=== PATIENT | male | born 1960 | race Caucasian/White ===

== ENCOUNTER 2016-10-18 14:52 | Emergency (ER) | payer OTHER ==
[2016-10-18 15:04] VITALS: BP 141/93
[2016-10-18] MEDS ORDERED: Levalbuterol 0.63MG/3ML NEB INH ONE (15:04)
--- NOTE | 2016-10-18 15:06 | UC ---
Progress - Progress Note Progress Note: Provider saw Patient at initial triage, O2sat 94% and bilateral wheezing ascultated, Neb treatment ordered after medications reviewed. Denied CP.
[2016-10-18] MEDS ORDERED: Acetaminophen TAB* 325 MG PO ONE (15:44)
--- NOTE | 2016-10-18 16:22 | RAD ---
INDICATION: Cough, fever and hemoptysis COMPARISON: Most recent comparison chest x-ray is dated September 29, 2013 TECHNIQUE: PA and lateral views of the chest were obtained. FINDINGS: There is a left chest cardiac pacemaker with 2 leads overlying the heart. 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 The heart and mediastinum are normal in size and contour. The lungs are grossly clear. There is no evidence of large pleural effusion. Degenerative changes of the thoracic spine includes loss of intervertebral disc height and mild anterior marginal osteophyte formation. There is no radiographic evidence of free air beneath the diaphragm IMPRESSION: No radiographic evidence of acute cardiopulmonary disease.
--- NOTE | 2016-10-18 17:15 | UC ---
Ashlie Benavides SooYoung, scribed for Selam Grewal MD on 10/18/16 at 1522 . Respiratory Complaint HPI - HPI Summary HPI Summary: A 56 y/o M presents to [facility] with c/o non-productive cough onset over one week. Pt notes that he did cough up specks of blood, reddish mucous 6-8x, last episode was a few days ago. Associated sx: diaphoresis, low-grade fever at [facility], mild [place]. Denies: CP, sore throat, hematuria, melena, bleeding elsewhere, ear pain. He is using Nyquil to sleep better. States his cough is better at night when he is using his biPAP machine. Pert PMHx: PNA, afib, sleep apnea and per , he is using the machine. Mild allergies. Home meds include Eliquis since July 2016. Pt had his 4th ablation for afib in [place] in July 2016, is unsure if there's been improvement. Non-smoker. Note that pt's treatment was initiated by provider at triage who started pt on a xopenex neb. Shu Soto's inital note reviewed. - History of Current Complaint Chief Complaint: UCRespiratory Stated Complaint: COUGH Hx Obtained From: Patient, Family/Front Desk - present Onset/Duration: Gradual Onset, Lasting Days, Still Present Timing: Constant Severity Initially: Moderate Severity Currently: Moderate Pain Intensity: 0 Pain Scale Used: 0-10 Numeric Character: Cough: Nonproductive - mostly, except had a few episodes of yellow sputum with a speck of blood, last episode a few days ago Aggravating Factors: Allergens Alleviating Factors: OTC Meds Associated Signs And Symptoms: Positive: Fever - low grade, Hemoptysis, URI, Nasal Congestion. Negative: Pleuritic Chest Pain, Calf Pain, Calf Swelling, Hoarseness, Sinus Discomfort - Risk Factors Pulmonary Embolism Risk Factors: Negative Cardiac Risk Factors: Negative Pseudomonas Risk Factors: Negative Tuberculosis Risk Factors: Negative - Allergies/Home Medications Allergies/Adverse Reactions: Allergies Allergy/AdvReac Type Severity Reaction Status Date / Time Amlodipine Allergy Joint Pain Verified 03/02/16 20:52 Hydrochlorothiazide Allergy Joint Pain Verified 03/02/16 20:52 Home Medications: Home Medications Diphenhydramine HCl [Benadryl Allergy 25 MG TAB] 50 mg PO 10/18/16 [History] PMH/Surg Hx/FS Hx/Imm Hx Previously Healthy: No Cardiovascular History: Hypertension, Atrial Fibrillation Other Respiratory History: BiPAP; sleep apnea GI/ History: Gastroesophageal Reflux, Diverticulitis, Other Other GI/ History: Gallstones Other History Of: Anticoagulant Therapy - Surgical History Surgical History: Yes Surgery Procedure, Year, and Place: pacer CARDIAC CATH , FASCIOTOMY, ABLATION X 4,GALL STONES, OPEN LEFT KNEE SURGERY, RLE AND FOOT 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 - Family History Known Family History: Positive: Cardiac Disease - afib, mother, Hypertension, Diabetes - Social History Occupation: Employed Full-time Lives: With Family Alcohol Use: Weekly Alcohol Amount: 6-7 PER WEEK Substance Use Type: None Smoking Status (MU): Never Smoked Tobacco Have You Smoked in the Last Year: No - Immunization History Most Recent Influenza Vaccination: no Most Recent Tetanus Shot: 2011 Most Recent Pneumonia Vaccination: no Review of Systems Constitutional: Fever - low-grade, Other - pos: diaphoresis Skin: Negative Eyes: Negative ENT: Negative Respiratory: Cough, Other - hemoptysis approx 8 times Cardiovascular: Negative Gastrointestinal: Negative Genitourinary: Negative Motor: Negative Neurovascular: Negative Musculoskeletal: Negative Neurological: Headache - mild Psychological: Negative All Other Systems Reviewed And Are Negative: Yes Physical Exam Triage Information Reviewed: Yes Appearance: No Pain Distress, Well-Nourished, Ill-Appearing Vital Signs: Initial Vital Signs Temp 100.0 F 10/18/16 15:00 Pulse 70 10/18/16 15:00 Resp 18 10/18/16 15:00 BP 141/93 10/18/16 15:00 Pulse Ox 94 10/18/16 15:00 Vital Signs Reviewed: Yes Eyes: Positive: Conjunctiva Clear ENT: Positive: Normal ENT inspection, Pharynx normal, TMs normal Neck: Positive: Supple, Nontender, No Lymphadenopathy Respiratory: Positive: Lungs clear - note initial exam by me is after xopenex neb, ordered by provider at triage, Normal breath sounds, No respiratory distress Cardiovascular: Positive: RRR - sinus rhythm by auscultation, No Murmur, Pulses Normal, Brisk Capillary Refill Abdomen Description: Positive: Nontender, Soft. Negative: Splenomegaly Musculoskeletal: Positive: Strength Intact, ROM Intact, No Edema, Other: - NEG: CALF TENDERNESS Neurological: Positive: Alert, Muscle Tone Normal Psychological Exam: Normal Psychological: Positive: Normal Response To Family Skin Exam: Normal UC Diagnostic Evaluation - Laboratory O2 Sat by Pulse Oximetry: 94 - Radiology Xray Interpretation: No Acute Changes - IMPRESSION: No radiographic evidence of acute cardiopulmonary dz. Radiology Interpretation Completed By: Radiologist Re-Evaluation - Re-Evaluation First Eval Re-Evaluation Time: 16:34 Change: Improved Comment: Discussing results with pt and dispo. Pt states feeling better, will D/ C home with meds. Respiratory Course/Dx - Course Course Of Treatment: Pt is a 56 y/o M presenting with non-productive cough onset over one week. Pt notes he did cough up specks of blood, reddish mucous about 6-8x, with last episode a few days ago. Associated sx: diaphoresis, low- grade fever at [facility], mild [place]. Denies: CP, sore throat, hematuria, melena, bleeding elsewhere, ear pain. Pert PMHx: PNA, afib, sleep apnea. Non-smoker. Allergies noted. High blood pressure noted at today's visit, pt on HTN medication. Pt medications reviewed this visit. Pt given nebulizer treatment, Tylenol at [facility]. CXR results show no acute cardiopulmonary dz. Will D/C home with Doxycycline, Albuterol, Prednisone. - Differential Dx/Diagnosis Differential Diagnosis/HQI/PQRI: Bronchitis, Lower Resp Infection, Pulmonary Embolism Provider Diagnoses: Asthmatic bronchitis. Hemoptysis by history on anticoagulants. Blood pressure under poor control. Discharge - Discharge Plan Condition: Stable Disposition: HOME Prescriptions: Albuterol HFA INHALER* [Ventolin HFA Inhaler*] 2 puff INH Q4H PRN #1 mdi PRN Reason: Cough DOXYcycline CAP(*) [DOXYcycline 100MG CAP(*)] 100 mg PO BID #20 cap predniSONE TAB* [Deltasone TAB*] 40 mg PO DAILY #10 tab Patient Education Materials: Bronchospasm (ED), Acute Bronchitis (ED) Referrals: Nori Zapien [Primary Care Provider] - Additional Instructions: We gave a nebulizer treatment with xopenex medication and it helped your breathing. Your chest xray did not show any pneumonia. You had a temp of 100.0 which is not a true fever, but you will want to monitor this. Any temp higher than 100.5 is a true fever. We are treating you as asthmatic bronchitis with an antibiotic, doxycycline, and with prednisone and have prescribed an inhaler for you to use. Take these meds as directed. RETURN TO URGENT CARE FOR ANY NEW OR WORSENING SYMPTOMS. The documentation as recorded by the Ashlie sheikh SooYoung accurately reflects the service I personally performed and the decisions made by me, Selam Grewal MD.
== END 2016-10-18 16:44 | disposition home or self-care (01) ==
LOC: UCEAST 14:52
DX: J45.909 Unspecified asthma, uncomplicated (principal); R04.2 Hemoptysis; I10 Essential (primary) hypertension; I48.91 Unspecified atrial fibrillation; G47.30 Sleep apnea, unspecified; Z79.01 Long term (current) use of anticoagulants
CPT/HCPCS: 71020; 99212; A9270-GY; G0463

== ENCOUNTER 2017-04-11 08:05 | Emergency (ER) | payer OTHER ==
[2017-04-11 08:20] VITALS: BP 143/95
--- NOTE | 2017-04-11 08:54 | UC ---
Adams Benavides Angela, scribed for Freeman Cancer InstituteThony MD on 04/11/17 at 0832 . Respiratory Complaint HPI - HPI Summary HPI Summary: In Room Note: This pt is a 57 y/o male presenting to [facility] c/o sinus congestion, rhinorrhea, cough x5 days. Pt reports that he also has ear crackling and headache. He denies fever. Pt notes this feels like a sinus infection, which he gets about 1 times a year. The last time he had these symptoms he was given amoxicillin for 10 days. PMHx includes HTN (currently on Lopressor), atrial fibrillation, pacemaker. His PCP is Dr. Nori Zapien. Pt has had 4 ablations. His title searcher is Dr. Mast. Note: 57 you male with cough, sinus discomfort for one week. VS stable, afebrile. s/ p cardiac cath; hx of HTN, being treated. Visit hx significant for atrial fib, obesity. Nurse's note: SICK FOR ONE WEEK WITH STUFFY HEAD AND COUGH. EARS ARE CRACKLING. NO FEVER, FAR HE KNOWS. FEELS LIKE HE HAS A SINUS INFECTION. GETS THIS ABOUT 1 TIME PER YEAR. - History of Current Complaint Chief Complaint: UCRespiratory Stated Complaint: RESP ISSUE Hx Obtained From: Patient Onset/Duration: Lasting Days, Still Present Timing: Constant Aggravating Factors: Nothing Alleviating Factors: Nothing Associated Signs And Symptoms: Positive: URI - with cough, headache, Nasal Congestion. Negative: Fever, Chills - Allergies/Home Medications Allergies/Adverse Reactions: Allergies Allergy/AdvReac Type Severity Reaction Status Date / Time Amlodipine Allergy Joint Pain Verified 04/11/17 08:13 Hydrochlorothiazide Allergy Joint Pain Verified 04/11/17 08:13 PMH/Surg Hx/FS Hx/Imm Hx Other Endocrine History: DENIES: diabetes Cardiovascular History: Hypertension, Pacemaker/ICD, Atrial Fibrillation Other History Of: Anticoagulant Therapy - Surgical History Surgical History: Yes Surgery Procedure, Year, and Place: pacer CARDIAC CATH , FASCIOTOMY, ABLATION X 4,GALL STONES, OPEN LEFT KNEE SURGERY, RLE AND FOOT 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 - Family History Known Family History: Positive: Cardiac Disease - afib, mother, Hypertension - mother, Diabetes - Social History Alcohol Use: Weekly Alcohol Amount: 6-7 PER WEEK Substance Use Type: None Smoking Status (MU): Never Smoked Tobacco Have You Smoked in the Last Year: No - Immunization History Most Recent Influenza Vaccination: no Most Recent Tetanus Shot: 2011 Most Recent Pneumonia Vaccination: no Review of Systems Constitutional: Negative Skin: Negative Eyes: Negative ENT: Nasal Discharge, Sinus Congestion, Other - ears crakling Respiratory: Cough Cardiovascular: Negative Gastrointestinal: Negative Genitourinary: Negative Motor: Negative Neurovascular: Negative Musculoskeletal: Negative Neurological: Headache Psychological: Negative Is Patient Immunocompromised?: No All Other Systems Reviewed And Are Negative: Yes Physical Exam Triage Information Reviewed: Yes Vital Signs: Initial Vital Signs Temp 97.2 F 04/11/17 08:16 Pulse 78 04/11/17 08:16 Resp 16 04/11/17 08:16 BP 143/95 04/11/17 08:16 Pulse Ox 97 04/11/17 08:16 Vital Signs Reviewed: Yes - Additional Comments The patient is well-nourished in no acute distress and in no acute pain. The skin is warm and dry and skin color reflects adequate perfusion. HEENT: The head is normocephalic and atraumatic. The pupils are equal and reactive. The conjunctivae are clear and without drainage. Nares are patent and without drainage. Mouth reveals moist mucous membranes and the throat is without erythema and exudate. The external ears are intact. The ear canals are patent and without drainage. The tympanic membranes are intact. Neck is supple with full range of motion and non-tender. There are no carotid bruits. There is no neck vein distension. Respiratory: Chest is non-tender. Lungs are clear to auscultation and breath sounds are symmetrical and equal. Cardiovascular: IRREGULARLY IRREGULAR RATE AND RHYTHM. There is no murmur or rub auscultated. There is no peripheral edema and pulses are symmetrical and equal. Abdomen: The abdomen is soft and non-tender. There are normal bowel sounds heard in all four quadrants and there is no organomegaly palpated. Musculoskeletal: There is no back pain noted. Extremities are non-tender with full range of motion. There is good capillary refill. There is no peripheral edema or calf tenderness elicited. Neurological: Patient is alert and oriented to person, place and time. The patient has symmetrical motor strength in all four extremities. Cranial nerves are grossly intact. Deep tendon reflexes are symmetrical and equal in all four extremities. Psychiatric: The patient has an appropriate affect and does not exhibit any anxiety or depression. Diagnostic Evaluation - Laboratory O2 Sat by Pulse Oximetry: 97 Respiratory Course/Dx - Course Course Of Treatment: Medications have been included in the original chart and reviewed.Elevated BP but has current hypertension diagnosis, with treatment. In physical exam, pt's LUNGS ARE CLEAR. Pt has an IRREGULARLY IRREGULAR RATE AND RHYTHM. COT: I discussed with the pt using amoxicilling as well as symptomatic treatment. Patient has been given an antibiotic because of findings on physical examination and health history. The risks and benefits of antibiotic treatment have been discussed and patient has voiced understanding of these risks including the possibility of developing clostridium difficile enterocolitis. - Differential Dx/Diagnosis Differential Diagnosis/HQI/PQRI: Sinusitis, Other - URI Provider Diagnoses: Sinusitis Discharge - Discharge Plan Condition: Stable Disposition: HOME Prescriptions: Amoxicillin PO (*) [Amoxicillin 875 MG (*)] 875 mg PO BID #20 tab MDD 2 Patient Education Materials: Sinusitis (ED) Referrals: Nori Zapien [Primary Care Provider] - Additional Instructions: Your blood pressure reading today was 143/95. Follow-up with your primary care provider within 4 weeks for blood pressure readings and further evaluation. Thank you for helping us improve patient care by filling out the My Point Survey. WE DISCUSSED: 1. You have sinusitis. 2. You have been prescribed Amoxicillin. Take for 7 days unless you are not better, then continue for 3 more days. 3. ALSO: USEFUL WAYS TO FEEL BETTER WITHOUT MEDICATIONS: STAND UNDER SHOWER STREAM TO LOOSEN SECRETIONS. USE A VAPORIZOR. STAY AWAY FROM ANY SMOKE OR IRRITANTS. USE SALINE NASAL SPRAY TO KEEP FLOW OF MUCOUS FROM NOSTRILS AND SINUSES. CONSIDER USING NETI POT TO HELP WITH ALLERGIES AND CONGESTION IN THE NOSE. USE THIS THREE TIMES A WEEK. YOU CAN GET THIS AT [facility] IN [place] OR VARIOUS DRUG[employer]ORES. DRINK LOTS OF WARM FLUIDS USEFUL HOME REMEDIES: WARM WATER GARGLES, WITH TSP OF SALT PER 8 OUNCES OF WATER, GARGLE FOR A FEW SECONDS AND SPIT OUT; GARGLE AND SPIT OUT; EVERY THREE HOURS. AND/OR: WARM WATER OR TEA, HONEY AND LEMON; 2-3 CUPS A DAY. FOR SORE THROAT: KEEP THROAT MOIST WITH LOZENGES; TEA AND HONEY. USE WARM WATER GARGLES 3-4 TIMES A DAY. FOLLOW UP: RE-CHECK IN 1O DAYS, NEEDED, IF YOU ARE NOT IMPROVING. RETURN HERE OR SEE YOUR PHYSICIAN. PLEASE SEEK CARE AT THE EMERGENCY DEPARTMENT IF SYMPTOMS WORSEN OR IF NEW SYMPTOMS DEVELOP. FOLLOW UP WITH YOUR PRIMARY CARE PHYSICIAN. The documentation as recorded by the Adams sheikh Angela accurately reflects the service I personally performed and the decisions made by me, Thony Cordero MD.
== END 2017-04-11 08:54 | disposition home or self-care (01) ==
LOC: UCEAST 08:05
DX: J32.9 Chronic sinusitis, unspecified (principal); I10 Essential (primary) hypertension; I48.91 Unspecified atrial fibrillation; Z95.810 Presence of automatic (implantable) cardiac defibrillator
CPT/HCPCS: 99212; G0463

== ENCOUNTER 2018-11-27 07:09 | Emergency (ER) | payer OTHER ==
[2018-11-27 07:19] VITALS: BP 130/73
--- NOTE | 2018-11-27 07:20 | UC ---
General HPI - HPI Summary HPI Summary: cough since wednesday, then yesterday developed sharp pain w/ coughing and deep breathing to posterior right ribs, as well as some blood tinged sputum. Pleasant 58 yo gentleman c/o since Wednesday (today is Wednesday) pain in R lower lateral chest. + cough, seems worse at night. Pain worse with deep inspiration. No fever / chills. No abd pain. No hematuria. No brbpr. No melena. No rash. No recent illness otherwise. Very active. No leg pain or swelling. PMH age 25 + gangrene RLE, with osteomyelitis, s/p flap. No sob perse. No palpitations perse. Pain a little worse with lying down, gillian on R side. But not exclusive to that position. - History of Current Complaint Chief Complaint: UCGeneralIllness Stated Complaint: RIGHT FLANK PAIN Time Seen by Provider: 11/27/18 07:13 Hx Obtained From: Patient Pain Intensity: 8 - Allergy/Home Medications Allergies/Adverse Reactions: Allergies Allergy/AdvReac Type Severity Reaction Status Date / Time amlodipine AdvReac Joint Pain Verified 11/27/18 07:20 hydrochlorothiazide AdvReac Joint Pain Verified 11/27/18 07:20 Home Medications: Home Medications Losartan TAB* [Cozaar TAB*] 25 mg PO DAILY 11/27/18 [History Confirmed 11/27/18] PMH/Surg Hx/FS Hx/Imm Hx Previously Healthy: Yes Other History Of: Anticoagulant Therapy - Surgical History Surgical History: Yes Surgery Procedure, Year, and Place: pacemaker, CARDIAC CATH , FASCIOTOMY, cardiac ABLATION X 4,GALL STONES, OPEN LEFT KNEE SURGERY, RLE AND FOOT 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 - Family History Known Family History: Positive: Cardiac Disease - afib, mother, Hypertension - mother, Diabetes - Social History Alcohol Use: Weekly Alcohol Amount: 6-7 PER WEEK Substance Use Type: None Smoking Status (MU): Never Smoked Tobacco Have You Smoked in the Last Year: No - Immunization History Most Recent Influenza Vaccination: no Most Recent Tetanus Shot: 2011 Most Recent Pneumonia Vaccination: no Review of Systems All Other Systems Reviewed And Are Negative: Yes Constitutional: Positive: Negative Skin: Positive: Negative Eyes: Positive: Negative ENT: Positive: Negative Respiratory: Positive: Other - see hpi Cardiovascular: Positive: Other - see hpi Gastrointestinal: Positive: Other - see hpi Genitourinary: Positive: Negative Motor: Positive: Negative Neurovascular: Positive: Negative Musculoskeletal: Positive: Negative Neurological: Positive: Negative Psychological: Positive: Negative Is Patient Immunocompromised?: No Physical Exam Triage Information Reviewed: Yes Appearance: Well-Appearing - sitting up, conversing easily and appropriately. Full sentances. NAD. Nontoxic general appearance., Well-Nourished Vital Signs: Initial Vital Signs Temp 98 F 11/27/18 07:14 Pulse 61 11/27/18 07:14 Resp 16 11/27/18 07:14 BP 130/73 11/27/18 07:14 Pulse Ox 94 11/27/18 07:14 Vital Signs Reviewed: Yes Eye Exam: Normal ENT: Positive: Pharynx normal, TM dull - TM dull, wolf. EAC ok Neck exam: Normal Neck: Positive: Supple Respiratory Exam: Other - no adventitious sounds appreciated. Does c/o pain with full inspiration and deep expiration Respiratory: Positive: Chest non-tender, Lungs clear, Normal breath sounds, No respiratory distress, No accessory muscle use Cardiovascular: Positive: RRR, Pulses Normal, Brisk Capillary Refill Abdominal Exam: Normal - heavy, but nad. no RUQ tenderness elicited Abdomen Description: Positive: Nontender, No Organomegaly Musculoskeletal Exam: Other - moves well x 4 exts no chalo homans. + venous insuff evidence and varicosities, but not unusual. Feet warm to touch. R ant calf - s/p flap, will healed. Neurological Exam: Normal - grossly nonfocal Psychological Exam: Normal - conversing easily and appropriately Skin Exam: Normal - no visible or reported rash Course/Dx - Course Course Of Treatment: Reviewed coa /tx plan EKG (c/w Jan 2018), pt notes recent ablation at [facility] in May 2018 CXR - see [email or web address]. Reviewed with pt. Urine dip - see pt care. neg gluc, small bili neg ket SG 1.025 - 1,030 Blood neg (?) ph 6 trace prote orobili 2 nit neg leuk neg CXR - with additional exp view - nad (Dr. Maier, [facility] Reviewed with pt. EKG - 60 bpm atrial paced. QTC 482 pr 183. d/w pt recommendation for further eval in ED (diff includes, albeit not limited to pulm emb, despite eliquis). He carefully considered this, will go to the ED POV. Question as posed answered to the best of my ability. - Diagnoses Provider Diagnosis: Chest pain, Hemoptysis Discharge - Sign-Out/Discharge Documenting (check all that apply): Patient Departure All imaging exams completed and their final reports reviewed: Yes - Discharge Plan Condition: Stable Disposition: HOME-RECOMMEND TO ED Patient Education Materials: Chest Pain (ED), Hemoptysis (ED) Referrals: Nori Zapien [Primary Care Provider] - Additional Instructions: Please go to the Emergency Department. Please stop and call 911 if problems en route. Do not eat before going to the Emerg Dept. Water ok. - Billing Disposition and Condition Condition: STABLE Disposition: Home-Recommend to ED
== END 2018-11-27 08:48 | disposition home health service (06) ==
LOC: UCEAST 07:09
DX: R04.2 Hemoptysis (principal); R07.9 Chest pain, unspecified; Z79.01 Long term (current) use of anticoagulants
CPT/HCPCS: 71048; 81002; 87086; 99212; G0463

== ENCOUNTER 2018-11-27 09:06 | Emergency (ER) | payer OTHER ==
[2018-11-27] MEDS ORDERED: NS 0.9% 1000 ML** 1,000 ML IV ONE (09:26)
[2018-11-27] MEDS ORDERED: Ketorolac INJ* 30 MG/ML 1 ML VIAL IV PUSH ONE (09:32)
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
[2018-11-27 10:24] LABS: ABS Lymphocytes 0.6 10^3/ul (1.0-4.8); ABS Monocytes 1.1 10^3/ul (0-0.8); ABS Neutrophils 10.8 10^3/ul (1.5-7.7); Eosinophil % 0.1 %; Hematocrit 42 % (42-52); Hemoglobin 13.6 g/dL (14.0-18.0); Mean Corpuscular HGB Conc 33 g/dL (31-36); Mean Corpuscular Hemoglobin 31 pg (27-31); Mean Corpuscular Volume 94 fL (80-94); Mean Platelet Volume 7.8 fL (7.4-10.4); Platelet Count 140 10^3/uL (150-450); Red Blood Count 4.44 10^6 /uL (4.18-5.48); Red Cell Distribution Width 14 % (10-15); White Blood Count 12.5 10^3/uL (3.5-10.8)
[2018-11-27 11:14] LABS: Albumin 3.8 g/dL (3.2-5.2)
[2018-11-27 11:18] LABS: Urine Appearance Clear; Urine Bacteria Absent (Absent); Urine Bilirubin Negative (Negative); Urine Blood Negative (Negative); Urine Color Amber; Urine Glucose Negative (Negative); Urine Ketones Negative (Negative); Urine Nitrite Negative (Negative); Urine Protein 1+(30 mg/dL) (Negative); Urine Red Blood Cell Absent (Absent); Urine Specific Gravity 1.029 (1.010-1.030); Urine Urobilinogen Positive (Negative); Urine White Blood Cell Trace(0-5/hpf) (Absent)
[2018-11-27 11:18] LABS: Calcium 8.3 mg/dL (8.6-10.3); Potassium 4.2 mmol/L (3.5-5.0)
[2018-11-27 11:20] LABS: Albumin/Globulin Ratio 1.4 (1-3); Globulin 2.8 g/dL (2-4); Total Protein 6.6 g/dL (6.4-8.9)
[2018-11-27 11:22] LABS: BUN/Creatinine Ratio 23.1 (8-20); EGFR Non-African American 70.2 (>60)
[2018-11-27] MEDS ORDERED: Iohexol 350* (CONTRAST) 500 ML MDV IV ONE (11:43)
[2018-11-27] MEDS ORDERED: Ondansetron INJ* 2 MG/ML VIAL IV ONE (12:11)
[2018-11-27] MEDS ORDERED: Morphine 4 MG/ML VIAL (1 ml) 4 MG/ML VIAL IV ONE (12:11)
[2018-11-27] MEDS ORDERED: oxyCODONE/Acetamin 5/325 MG* TAB PO ONE (12:41)
[2018-11-27 13:15] VITALS: BP 135/70
== END 2018-11-27 13:14 | disposition home or self-care (01) ==
LOC: ED 09:06
DX: J18.1 Lobar pneumonia, unspecified organism (principal); Z88.8 Allergy status to other drugs, medicaments and biological substances; I48.91 Unspecified atrial fibrillation; I10 Essential (primary) hypertension; Z95.0 Presence of cardiac pacemaker
CPT/HCPCS: 36415; 71275; 80053; 81003; 81015; 84484; 85025; 85379; 85730; 93005; 96361; 96374; 96375; 99282; J1885; Q9967